=== PATIENT | female | born 1960 | race Caucasian/White ===

== ENCOUNTER 2023-12-18 22:18 | Emergency (ER) | payer BC ==
[~2023-12-18] VITALS: Ht 167.6 cm; Wt 100.5 kg
[2023-12-19] MEDS ORDERED: AMOX875T2 PO (01:31)
[2023-12-19] MEDS ORDERED: IBUP-1022 PO (01:31)
[2023-12-19] MEDS: IBUPROFEN 600MG TAB PO ONE (01:37)
[2023-12-19] MEDS: AUGMENTIN 875 MG TAB PO ONE (01:38)
[2023-12-19 01:43] VITALS: BP 139/77; TEMP 98.1; O2SAT 97
== END 2023-12-19 01:52 | disposition home or self-care (01) ==
LOC: M ED 22:18
DX: S81.852A Open bite, left lower leg, initial encounter (principal); W54.0XXA Bitten by dog, initial encounter; Y93.01 Activity, walking, marching and hiking; Y92.410 Unspecified street and highway as the place of occurrence of the external cause